=== PATIENT | male | born 1945 | race Caucasian/White ===

== ENCOUNTER 2016-08-01 19:55 | Emergency (ER) | payer MEDICARE ==
--- NOTE | 2016-08-01 21:05 | DIAGNOSTIC IMAGING REPORT ---
PROCEDURE: XR CHEST 1 VIEW INDICATION: CHEST PAIN TECHNIQUE: Portable AP view 08:37 p.m. COMPARISON: None. FINDINGS: Lungs are clear. Borderline cardiomegaly. Mediastinum and prior vessels are normal. Mildly tortuous aorta. Thorax is normal. IMPRESSION: 1. Borderline cardiomegaly.
--- NOTE | 2016-08-01 23:58 | ED NURSING NOTES ---
Clinical Report - Nurses [facility] [address] [place] [address] 08/01/2016 19:54 Patient: GHULAM AQUINO TRIAGE Triage time 20:07. Acuity: LEVEL 2. Chief Complaint: CHEST DISCOMFORT and (1.5 HR ago got a "funny feeling in the middle of the chest. I had a knot in the middle of my chest, and now it's gone."). Alert. No acute distress. SEPSIS SCREEN: Sepsis Screen: negative. Negative (no infection suspected/documented). --20:32 Lorraine Izaguirre R.N. 20:08/01/16. BP: 148/76. HR: 89. RR: 18. O2 saturation: 95%. Temp: 98.7 F (oral). Pain level now: 0/10. --20:32 Lorraine Izaguirre R.N. 20:08/01/16. BP: 148/76. HR: 89. RR: 18. O2 saturation: 95%. Temp: 98.7 F (oral). Pain level now: 0/10. --20:32 Lorraine Izaguirre R.N. Weight: 23.5 kg stated. Height/Length: 69 inches Per Patient. BMI: 7.7. --20:30 Lorraine Izaguirre R.N. Medications Furosemide Oral 40 mg, daily. --20:23 Lorraine Izaguirre R.N. Digoxin Oral 0.25 mg, daily. --20:24 Lorraine Iazguirre R.N. MetFORMIN HCl Oral 750mg hs . --20:24 Lorraine Izaguirre R.N. Insulin Glargine Subcutaneous 22 units, every AM. --20:25 Lorraine Izaguirre R.N. Warfarin Sodium Oral 7.5 mg, daily. --20:26 Lorraine Izaguirre R.N. Metoprolol Tartrate Oral 100 mg, bid. --20:26 Lorraine Izaguirre R.N. Lisinopril Oral 10 mg, daily. --20:27 Lorraine Izaguirre R.N. Klor-Con M10 Oral 2 tabs day. --20:27 Lorraine Izaguirre R.N. HydrALAZINE HCl Oral (Tablet 25 mg) 1 tablet, day. --20:29 Lorraine Izaguirre R.N. Atorvastatin Calcium Oral 40 mg, at bedtime. --20:29 Lorraine Izaguirre R.N. VESIcare Oral (Tablet 5 mg) 1 tablet, day. --20:29 Lorraine Izaguirre R.N. Medication/allergy information source: the patient. --20:32 Lorraine Izaguirre R.N. Allergies Keflex. --20:30 Lorraine Izaguirre R.N. History Arrived by EMS. Historian: patient. 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 This started just prior to arrival. He has had difficulty breathing and nausea. No sweating episodes or vomiting. 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 See EMS report. BP: 148 / 76 lying. HR: 88. RR: 18. O2 saturation: 96 % room air. Upon arrival patient awake. No medications given. PAST MEDICAL HX: Immunizations: status is unknown. SOCIAL HX: Never smoker. Alcohol use; consumes two liquor. FALL RISK ASSESSMENT: Fall risk assessment completed. No fall risk identified. NUTRITIONAL RISK ASSESSMENT: The nutritional risk assessment revealed no deficiencies. FUNCTIONAL ASSESSMENT: Functional assessment: no impairments noted. LEARNING NEEDS ASSESSMENT: The learning needs assessment revealed no barriers. SKIN INTEGRITY ASSESSMENT: Skin integrity risk assessment completed. No skin integrity risk identified. --20:32 Lorraine Izaguirre R.N. PROBLEMS: Sleep Apnea. Osteoarthritis of Hip. DVT - Deep Venous Thrombosis. Back Pain. Pulm embolism . Perifpheral insufficiency . Hyperlipidemia. Cardiomyopathy associated with another disorder. Qbesity. A-fib. UTI - Urinary Tract Infection. Alcohol Intoxication. Diabetes Mellitus. Hypertension. Heart Disease. --20:17 Lorraine Izaguirre R.N. ADDITIONAL SURGERIES: Ankle lt . Femur bilat . Urostomy. --20:17 Lorraine Izaguirre R.N. Knee Surgery. --20:18 Lorraine Izaguirre R.N. Interventions ID band on patient. To room. --20:32 Lorraine Izaguirre R.N. 20:04 08/01/2016 Site #1 started prior to arrival by EMS via IV in the right antecubital space with an 18g angiocath, with aseptic technique and good blood return; one attempt. Saline lock flushed with 10 mL saline. --20:19 Lorraine Izaguirre R.N. PHYSICAL ASSESSMENT To room via stretcher. Patient gowned. GENERAL / NEURO / PSYCH: Alert. Oriented X 4. Appears in no acute distress. Appears anxious. HEENT: Mucous membranes are pink. RESPIRATORY: Respirations not labored. CVS: Cardiac rhythm: atrial fibrillation. Pulses within normal limits. Capillary refill less than 2 seconds. GI / : Abdomen nontender. EXTREMITIES: 3+ edema of the right lower extremity; 2+ edema of the left lower extremity. SKIN: Skin is warm and dry. Normal skin turgor. --20:33 Lorraine Izaguirre R.N. NURSING PROGRESS NOTES monitor worker, pulse oximeter and NIBP monitor placed on patient; monitor worker- Lead II; monitor alarms on. Patient gowned. Head of bed elevated. Two patient identifiers checked. Call light placed in reach. Side rails up x 2. Patient placed in chair. Brakes of chair on. Patient ready for evaluation. --20:35 Lorraine Izaguirre R.N. EKG time: (2015). EKG was ordered, performed by a tech and shown to the ED physician. --20:37 Boyd Fischer ER Tech1 21:19 08/01/16. BP: 150/80. HR: 95. RR: 18. O2 saturation: 93%. --21:20 Sarah Wilson Critical value relayed to ED by Chandra. Critical value received by lorraine. INR: 9.6. Critical value read back. Verified lab result and patient ID. ED physician notifed of critical value. --21:28 Lorraine Izaguirre R.N. 22:34 08/01/16. BP: 135/97. HR: 97. RR: 14. O2 saturation: 98%. Pain level now: 5/10. --22:43 Monica Pittman R.N. The patient is resting quietly. RESPIRATORY: No respiratory distress. SKIN: Skin is warm and dry. --22:43 Monica Pittman R.N. 23:18 08/01/2016 Zofran (Ondansetron HCl) IVP 4 mg given over 2 minute(s) via site #1. Allergies verified and confirmed 5 rights. IV patency established. IV site checked: no pain, redness, or swelling. IV flushed thoroughly pre- and post-medication administration. IVP given by RN. --23:18 Monica Pittman R.N. 23:56 08/01/2016 PHENERGAN (Promethazine HCl) IVP 25 mg given diluted in NS 100mL over 10 minute(s) via site #1. Allergies verified and confirmed 5 rights. IV patency established. IV site checked: no pain, redness, or swelling. IV flushed thoroughly pre- and post-medication administration. IVP given by RN. --00:01 Sarah Wilson 00:30 08/02/2016 IV Saline Lock Drip IV Discontinued: bag #1 completed. Total amount infused: 1000 mL. IV patency established. IV site checked: no pain, redness, or swelling. IV flushed thoroughly. --00:43 Diana Liu R.N. DISPOSITION / DISCHARGE Condition at departure: improved and stable. No learning barriers present. Discharge instructions provided and reviewed with the patient. Reviewed medication(s) side effects, precautions, dosing and course information. Prescription(s) given to the patient. Activity restrictions (rest) reviewed. Patient and binding nicker verbalized understanding. Written instructions provided in Icelandic. The patient was discharged home and accompanied by binding nicker. He left the Emergency Department ambulatory and via private vehicle. Manager Instrumentation driving. --00:45 Diana Liu R.N. 00:32 08/02/16. BP: 146/85 taken on the left arm, while lying. HR: 41 (regular and bradycardic). RR: 18 (regular and unlabored). O2 saturation: 95% on room air. Temp: deferred. Pain level now: 0/10. --00:45 Diana Liu R.N. Departure time: 00:32. --00:45 Diana Liu R.N. 00:30 08/02/2016 Site #1 removed upon discharge. Catheter intact. Manual pressure and bandage applied. --00:45 Diana Liu R.N. Locked/Released at 08/02/2016 0:46 by Diana Liu R.N.
--- NOTE | 2016-08-01 23:58 | ED NURSING NOTES ---
Clinical Report - Nurses [facility] [address] [place] [address] 08/01/2016 19:54 Patient: GHULAM AQUINO TRIAGE Triage time 20:07. Acuity: LEVEL 2. Chief Complaint: CHEST DISCOMFORT and (1.5 HR ago got a "funny feeling in the middle of the chest. I had a knot in the middle of my chest, and now it's gone."). Alert. No acute distress. SEPSIS SCREEN: Sepsis Screen: negative. Negative (no infection suspected/documented). --20:32 Lorraine Izaguirre R.N. 20:08/01/16. BP: 148/76. HR: 89. RR: 18. O2 saturation: 95%. Temp: 98.7 F (oral). Pain level now: 0/10. --20:32 Lorraine Izaguirre R.N. 20:08/01/16. BP: 148/76. HR: 89. RR: 18. O2 saturation: 95%. Temp: 98.7 F (oral). Pain level now: 0/10. --20:32 Lorraine Izaguirre R.N. Weight: 23.5 kg stated. Height/Length: 69 inches Per Patient. BMI: 7.7. --20:30 Lorraine Izaguirre R.N. Medications Furosemide Oral 40 mg, daily. --20:23 Lorraine Izaguirre R.N. Digoxin Oral 0.25 mg, daily. --20:24 Lorraine Izaguirre R.N. MetFORMIN HCl Oral 750mg hs . --20:24 Lorraine Izaguirre R.N. Insulin Glargine Subcutaneous 22 units, every AM. --20:25 Lorraine Izaguirre R.N. Warfarin Sodium Oral 7.5 mg, daily. --20:26 Lorraine Izaguirre R.N. Metoprolol Tartrate Oral 100 mg, bid. --20:26 Lorraine Izaguirre R.N. Lisinopril Oral 10 mg, daily. --20:27 Lorraine Izaguirre R.N. Klor-Con M10 Oral 2 tabs day. --20:27 Lorraine Izaguirre R.N. HydrALAZINE HCl Oral (Tablet 25 mg) 1 tablet, day. --20:29 Lorraine Izaguirre R.N. Atorvastatin Calcium Oral 40 mg, at bedtime. --20:29 Lorraine Izaguirre R.N. VESIcare Oral (Tablet 5 mg) 1 tablet, day. --20:29 Lorraine Izaguirre R.N. Medication/allergy information source: the patient. --20:32 Lorraine Izaguirre R.N. Allergies Keflex. --20:30 Lorraine Izaguirre R.N. History Arrived by EMS. Historian: patient. 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 This started just prior to arrival. He has had difficulty breathing and nausea. No sweating episodes or vomiting. 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 See EMS report. BP: 148 / 76 lying. HR: 88. RR: 18. O2 saturation: 96 % room air. Upon arrival patient awake. No medications given. PAST MEDICAL HX: Immunizations: status is unknown. SOCIAL HX: Never smoker. Alcohol use; consumes two liquor. FALL RISK ASSESSMENT: Fall risk assessment completed. No fall risk identified. NUTRITIONAL RISK ASSESSMENT: The nutritional risk assessment revealed no deficiencies. FUNCTIONAL ASSESSMENT: Functional assessment: no impairments noted. LEARNING NEEDS ASSESSMENT: The learning needs assessment revealed no barriers. SKIN INTEGRITY ASSESSMENT: Skin integrity risk assessment completed. No skin integrity risk identified. --20:32 Lorraine Izaguirre R.N. PROBLEMS: Sleep Apnea. Osteoarthritis of Hip. DVT - Deep Venous Thrombosis. Back Pain. Pulm embolism . Perifpheral insufficiency . Hyperlipidemia. Cardiomyopathy associated with another disorder. Qbesity. A-fib. UTI - Urinary Tract Infection. Alcohol Intoxication. Diabetes Mellitus. Hypertension. Heart Disease. --20:17 Lorraine Izaguirre R.N. ADDITIONAL SURGERIES: Ankle lt . Femur bilat . Urostomy. --20:17 Lorraine Izaguirre R.N. Knee Surgery. --20:18 Lorraine Izaguirre R.N. Interventions ID band on patient. To room. --20:32 Lorraine Izaguirre R.N. 20:04 08/01/2016 Site #1 started prior to arrival by EMS via IV in the right antecubital space with an 18g angiocath, with aseptic technique and good blood return; one attempt. Saline lock flushed with 10 mL saline. --20:19 Lorraine Izaguirre R.N. PHYSICAL ASSESSMENT To room via stretcher. Patient gowned. GENERAL / NEURO / PSYCH: Alert. Oriented X 4. Appears in no acute distress. Appears anxious. HEENT: Mucous membranes are pink. RESPIRATORY: Respirations not labored. CVS: Cardiac rhythm: atrial fibrillation. Pulses within normal limits. Capillary refill less than 2 seconds. GI / : Abdomen nontender. EXTREMITIES: 3+ edema of the right lower extremity; 2+ edema of the left lower extremity. SKIN: Skin is warm and dry. Normal skin turgor. --20:33 Lorraine Izaguirre R.N. NURSING PROGRESS NOTES youth nutritional monitor, pulse oximeter and NIBP monitor placed on patient; night monitor- Lead II; monitor alarms on. Patient gowned. Head of bed elevated. Two patient identifiers checked. Call light placed in reach. Side rails up x 2. Patient placed in chair. Brakes of chair on. Patient ready for evaluation. --20:35 Lorraine Izaguirre R.N. EKG time: (2015). EKG was ordered, performed by a tech and shown to the ED physician. --20:37 Boyd Fischer ER Tech1 21:19 08/01/16. BP: 150/80. HR: 95. RR: 18. O2 saturation: 93%. --21:20 Sarah Wilson Critical value relayed to ED by Chandra. Critical value received by lorraine. INR: 9.6. Critical value read back. Verified lab result and patient ID. ED physician notifed of critical value. --21:28 Lorraine Izaguirre R.N. 22:34 08/01/16. BP: 135/97. HR: 97. RR: 14. O2 saturation: 98%. Pain level now: 5/10. --22:43 Monica Pittman R.N. The patient is resting quietly. RESPIRATORY: No respiratory distress. SKIN: Skin is warm and dry. --22:43 Monica Pittman R.N. 23:18 08/01/2016 Zofran (Ondansetron HCl) IVP 4 mg given over 2 minute(s) via site #1. Allergies verified and confirmed 5 rights. IV patency established. IV site checked: no pain, redness, or swelling. IV flushed thoroughly pre- and post-medication administration. IVP given by RN. --23:18 Monica Pittman R.N. 23:56 08/01/2016 PHENERGAN (Promethazine HCl) IVP 25 mg given diluted in NS 100mL over 10 minute(s) via site #1. Allergies verified and confirmed 5 rights. IV patency established. IV site checked: no pain, redness, or swelling. IV flushed thoroughly pre- and post-medication administration. IVP given by RN. --00:01 Sarah Wilson 00:30 08/02/2016 IV Saline Lock Drip IV Discontinued: bag #1 completed. Total amount infused: 1000 mL. IV patency established. IV site checked: no pain, redness, or swelling. IV flushed thoroughly. --00:43 Diana Liu R.N. DISPOSITION / DISCHARGE Condition at departure: improved and stable. No learning barriers present. Discharge instructions provided and reviewed with the patient. Reviewed medication(s) side effects, precautions, dosing and course information. Prescription(s) given to the patient. Activity restrictions (rest) reviewed. Patient and concert pianist verbalized understanding. Written instructions provided in Syriac. The patient was discharged home and accompanied by concert pianist. He left the Emergency Department ambulatory and via private vehicle. Paste Up Artist Apprentice driving. --00:45 Diana Liu R.N. 00:32 08/02/16. BP: 146/85 taken on the left arm, while lying. HR: 41 (regular and bradycardic). RR: 18 (regular and unlabored). O2 saturation: 95% on room air. Temp: deferred. Pain level now: 0/10. --00:45 Diana Liu R.N. Departure time: 00:32. --00:45 Diana Liu R.N. 00:30 08/02/2016 Site #1 removed upon discharge. Catheter intact. Manual pressure and bandage applied. --00:45 Diana Liu R.N. Locked/Released at 08/02/2016 0:46 by Diana Liu R.N.
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
--- NOTE | 2016-08-01 23:58 | ED ORDER SUMMARY ---
..... Patient: GHULAM AQUINO OrderSheet [facility] VisitID: [id number] [place] [address] 70y, M Registration Date/Time: 08/01/2016 ORDER SHEET Weight: 23.5 kg (stated) Allergies: Keflex GENERAL ORDERS: Chest 1V Urgent (20:08/01/2016 Jose Cadena) (Ack 20:31 Aníbal) (20:51 Lindy) Delivery Nurse (Continuous) (CP) (20:08/01/2016 oJse Cadena) (20:32 Aníbal) CBC w Diff Urgent (20:08/01/2016 Jose Cadena) (Ack 20:31 Aníbal) (22:26 KKnebel R.N.) CMP Urgent (20:08/01/2016 Jose Cadena) (Ack 20:31 Aníbal) (22:26 KKnebel R.N.) UA-Culture if indicated Urgent (20:08/01/2016 Jose Cadena) (Ack 20:31 Aníbal) (22:26 KKnebel R.N.) PT with INR Urgent (20:08/01/2016 Jose Cadena) (Ack 20:31 Aníbal) (22:26 KKnebel R.N.) D-Dimer Urgent (20:08/01/2016 Jose Cadena) (Ack 20:31 Aníbal) (22:26 KKnebel R.N.) Troponin-I Urgent (20:08/01/2016 Jose Cadena) (Ack 20:31 Aníbal) (22:26 KKnebel R.N.) CPK Urgent (20:08/01/2016 Jose Cadena) (Ack 20:31 Aníbal) (22:26 KKnebel R.N.) TSH Urgent (20:08/01/2016 Jose Cadena) (Ack 20:31 Aníbal) (22:26 KKnebel R.N.) Digoxin Level Urgent (20:08/01/2016 Jose Cadena) (Ack 20:31 Aníbal) (22:26 Ricky R.N.) Pulse oximeter (20:26 08/01/2016 Jose Cadena) (20:32 RKaruga) EKG - ER Stat (20:26 08/01/2016 Jose Cadena) (20:26 PWeiler ER Tech1) Ethyl Alcohol Urgent (22:36 08/01/2016 Naomie Cadena) (Ack 22:44 Aníbal) (23:00 Ricky R.N.) MEDICATION ORDERS: Phenergan IV 25 mg (HIGH ALERT MEDICATION, NOW) (23:53 08/01/2016 Naomie Cadena) (Ack 23:54 HSoule) (0:01 HSoule) IV FLUIDS: IV Saline Lock (20:26 08/01/2016 Jose Cadena) (20:36 Belen R.N.) Zofran IV 4 mg (NOW) (23:10 08/01/2016 Naomie Cadena) (Ack 23:12 Aubrey Nolasco) (23:18 Ricky R.NKalpesh) ORDER SHEET NOTES: [Electronically signed by Amilcar Dawkins Dr. (00:09 08/02/2016)] [Electronically signed by Diana Liu R.N. (00:46 08/02/2016)] [Electronically locked/signed by Diana Liu R.N. (00:46 08/02/2016)]
--- NOTE | 2016-08-01 23:58 | ED ORDER SUMMARY ---
..... Patient: GHULAM AQUINO OrderSheet [facility] VisitID: [id number] [place] [address] 70y, M Registration Date/Time: 08/01/2016 ORDER SHEET Weight: 23.5 kg (stated) Allergies: Keflex GENERAL ORDERS: Chest 1V Urgent (20:08/01/2016 Jose Cadena) (Ack 20:31 Aníbal) (20:51 Lindy) Air Tube Releaser (Continuous) (CP) (20:08/01/2016 Jose Cadena) (20:32 Aníbal) CBC w Diff Urgent (20:08/01/2016 Jose Cadena) (Ack 20:31 Aníbal) (22:26 KKnebel R.N.) CMP Urgent (20:08/01/2016 Jose Cadena) (Ack 20:31 Aníbal) (22:26 KKnebel R.N.) UA-Culture if indicated Urgent (20:08/01/2016 Jose Cadena) (Ack 20:31 Aníbal) (22:26 KKnebel R.N.) PT with INR Urgent (20:08/01/2016 Jose Cadena) (Ack 20:31 Aníbal) (22:26 KKnebel R.N.) D-Dimer Urgent (20:08/01/2016 Jose Cadena) (Ack 20:31 Aníbal) (22:26 KKnebel R.N.) Troponin-I Urgent (20:08/01/2016 Jose Cadena) (Ack 20:31 Aníbal) (22:26 KKnebel R.N.) CPK Urgent (20:08/01/2016 Jose Cadena) (Ack 20:31 Aníbal) (22:26 KKnebel R.N.) TSH Urgent (20:08/01/2016 Jose Cadena) (Ack 20:31 Aníbal) (22:26 KKnebel R.N.) Digoxin Level Urgent (20:08/01/2016 Jose Cadena) (Ack 20:31 Aníbal) (22:26 Ricky R.N.) Pulse oximeter (20:26 08/01/2016 Jose Cadena) (20:32 RKaruga) EKG - ER Stat (20:26 08/01/2016 Jose Cadena) (20:26 PWeiler ER Tech1) Ethyl Alcohol Urgent (22:36 08/01/2016 Naomie Cadena) (Ack 22:44 Aníbal) (23:00 Ricky R.N.) MEDICATION ORDERS: Phenergan IV 25 mg (HIGH ALERT MEDICATION, NOW) (23:53 08/01/2016 Naomie Cadena) (Ack 23:54 HSoule) (0:01 HSoule) IV FLUIDS: IV Saline Lock (20:26 08/01/2016 Jose Cadena) (20:36 Belen R.N.) Zofran IV 4 mg (NOW) (23:10 08/01/2016 Naomie Cadena) (Ack 23:12 Aubrey Nolasco) (23:18 Ricky R.NKalpesh) ORDER SHEET NOTES: [Electronically signed by Amilcar Dawkins Dr. (00:09 08/02/2016)] [Electronically signed by Diana Liu R.N. (00:46 08/02/2016)] [Electronically locked/signed by Diana Liu R.N. (00:46 08/02/2016)]
--- NOTE | 2016-08-02 00:47 | ED MED RECONCILIATION SUMMARY ---
Patient: GHULAM AQUINO Medication Reconciliation Report [facility] VisitID: [id number] [address] [place] [address] 70y, M Registration Date/Time: 08/01/2016 Weight: 23.5 kg Height/Length: 69 in. BMI: 7.7 ALLERGIES: Keflex The patient's Home Medications are listed below: CHANGE THE FOLLOWING MEDICATIONS TO: Warfarin Sodium Oral : 7.5 mg daily, Hold your Warfarin for Wednesday and Wednesday. Then start 2.5 mg every other day and 5 mg on other days. CONTINUE TAKING THE FOLLOWING MEDICATIONS: Atorvastatin Calcium Oral 40 mg, at bedtime Digoxin Oral 0.25 mg, daily Furosemide Oral 40 mg, daily HydrALAZINE HCl Oral (25 mg) 1 tablet, day Insulin Glargine Subcutaneous 22 units, every AM Klor-Con M10 Oral 2 tabs day Lisinopril Oral 10 mg, daily MetFORMIN HCl Oral 750mg hs Metoprolol Tartrate Oral 100 mg, bid VESIcare Oral (5 mg) 1 tablet, day The source(s) of the original Home Medication information: patient The following Medications were given to the patient in the Emergency Department: Zofran [IVP] IVP 4 mg, administered: 08/01/2016 11:18:00 PM PHENERGAN [IVP] IVP 25 mg diluted in NS 100 mL, administered: 08/01/2016 11:56:00 PM The following Medications were prescribed to the patient: Zantac 150 mg: take 1 orally every 12 hours. Dispense sixty (60). No refills. Substitution is permissible. -- Amilcar Dawkins Dr. Zofran ODT 4 mg: take 1 orally every 6 hours as needed for nausea and vomiting. Dispense ten (10). No refill. Substitution is permissible. -- Amilcar Dawkins Dr.
--- NOTE | 2016-08-02 00:47 | ED DISCHARGE INSTRUCTIONS ---
Patient: GHULAM AQUINO General Instructions [facility] VisitID: [id number] [place] [address] 70y, M Registration Date/Time: 08/01/2016 Acute alcoholic gastritis. No chronic gastritis or hemorrhagic gastritis. Oral anticoagulation therapy with high INR. INSTRUCTIONS Rest at home today and tomorrow. No alcohol. Your Current Medications: CHANGE THE FOLLOWING MEDICATIONS TO: Warfarin Sodium Oral : 7.5 mg daily, Hold your Warfarin for Wednesday and Wednesday. Then start 2.5 mg every other day and 5 mg on other days. CONTINUE TAKING THE FOLLOWING MEDICATIONS: Atorvastatin Calcium Oral : 40 mg at bedtime. Digoxin Oral : 0.25 mg daily. Furosemide Oral : 40 mg daily. HydrALAZINE HCl Oral : Tablet 25 mg, 1 tablet day. Insulin Glargine Subcutaneous : 22 units every AM. Klor-Con M10 Oral : 2 tabs day. Lisinopril Oral : 10 mg daily. MetFORMIN HCl Oral : 750mg hs. Metoprolol Tartrate Oral : 100 mg bid. VESIcare Oral : Tablet 5 mg, 1 tablet day. Prescription Medications: Zantac 150 mg: take 1 orally every 12 hours. Dispense sixty (60). No refills. Substitution is permissible. Zofran ODT 4 mg: take 1 orally every 6 hours as needed for nausea and vomiting. Dispense ten (10). No refill. Substitution is permissible. Follow-up: Follow up with your doctor in about three days. Call for an appointment. Blood pressure screening was not performed during this visit because the patient has an active diagnosis of hypertension. ADDITIONAL INFORMATION Gastritis (Adult) Gastritis is an irritation of the stomach lining. It can be acute (recent) or chronic (lasting a long time). Gastritis can be caused by overuse of alcohol or anti-inflammatory medications (such as aspirin, ibuprofen, or prednisone). H pyloriinfection can also cause chronic gastritis. Gastritis can cause a dull ache or burning pain in the upper abdomen. Other symptoms include nausea, vomiting, loss of appetite, and belching or bloating. Blood in the vomit or stools (red or black) is a sign of bleeding in the stomach. This requires immediate medical attention. Tests for H pyloriare used to screen for bacterial infection. If no infection is found, gastritis can be treated by stopping the cause and treating with antacids plus an acid heath medication. If H pylori infection is found, antibiotics will also be prescribed. Persons 55 years and older may undergo other tests before treatment is started. Two common tests are used to evaluate your symptoms. An upper GI series is an x-ray taken after you drink a chalky liquid called barium. This coats the stomach and allows the doctor to view any problems in the stomach on the x-ray. Another test is called endoscopy, during which a long thin tube called an endoscope is passed down your throat to the stomach. A camera at the end of the scope allows the doctor to view inside the stomach to check the cause of your symptoms. Home Care: Take the prescribed acid heath medication for the full course of treatment even if you begin to feel better sooner. This medication can take up to several days to fully control your symptoms. If you cant afford the prescribed medication, you can try [id number] acid blockers, such as Pepcid AC, Tagamet, Zantac, or Aciphex. If these do not relieve your symptoms, a stronger acid-heath can be tried, such as Prilosec OTC. If you have been prescribed an antibiotic to treat H pyloriinfection, finish the full course of medication. Do so even if you begin to feel better sooner. If you stop the medication too soon, the infection can return and be harder to treat. You can use antacids, such as Tums, Rolaids, Mylanta, or Maalox, for pain. This will be useful the first few days after starting acid blockers when the blockers havent started working yet. Follow the directions on the label. Liquid antacids may work better than tablets. Note that antacids can interfere with absorption of certain medications. Specifically, do not take Tagamet (cimetidine), Zantac (ranitidine), or Carafate (sucralfate) within 1 hour of taking an antacid. Talk with your pharmacist if you have any questions. Symptoms of gastritis can be worsened by certain foods. Limit or avoid fatty, fried, and spicy foods, as well as coffee, chocolate, mint, and foods with high acid content such as tomatoes and citrus fruit and juices (orange, grapefruit, lemon). Avoid alcohol, caffeine, and tobacco, which can delay healing. Avoid aspirin and anti-inflammatory medications such as ibuprofen (Advil, Motrin) and naproxen (Naprosyn, Aleve). Acetaminophen (Tylenol) is safe to use. Do not take more than the amount listed on the label. Follow Up with your doctor, or as advised by our staff. Further testing may be needed. If you do not improve over the next 4 days, contact your doctor. If you had an x-ray, CT scan, or ECG (electrocardiogram), it will be reviewed by a specialist. Youll be notified of any new findings that affect your care. Get Prompt Medical Attention if any of the following occur: Stomach pain gets worse or moves to the lower right abdomen (appendix area) Chest pain appears or gets worse, or spreads to the back, neck, shoulder, or arm Frequent vomiting (cant keep down liquids) Blood in the stool or vomit (red or black in color) Feeling weak or dizzy, fainting, or trouble breathing Fever of 100.4F (38C) or higher, or as directed by your healthcare provider Ranitidine Hydrochloride Oral tablet What is this medicine? RANITIDINE (ra RHEA tubbs) is a type of antihistamine that blocks the release of stomach acid. It is used to treat stomach or intestinal ulcers. It can relieve ulcer pain and discomfort, and the heartburn from acid reflux. How should I use this medicine? Take this medicine by mouth with a glass of water. Follow the directions on the prescription label. If you only take this medicine once a day, take it at bedtime. Take your medicine at regular intervals. Do not take your medicine more often than directed. Do not stop taking except on your doctor's advice. Talk to your pump servicer regarding the use of this medicine in children. Special care may be needed. What side effects may I notice from receiving this medicine? Side effects that you should report to your doctor or health critical care physician assistant as soon as possible: agitation, nervousness, depression, hallucinations allergic reactions like skin rash, itching or hives, swelling of the face, lips, or tongue breast enlargement in both males and females breathing problems redness, blistering, peeling or loosening of the skin, including inside the mouth unusual bleeding or bruising unusually weak or tired vomiting yellowing of the skin or eyes Side effects that usually do not require medical attention (report to your doctor or health critical care physician assistant if they continue or are bothersome): constipation or diarrhea dizziness headache nausea What may interact with this medicine? atazanavir delavirdine gefitinib glipizide ketoconazole midazolam procainamide propantheline triazolam warfarin What if I miss a dose? If you miss a dose, take it as soon as you can. If it is almost time for your next dose, take only that dose. Do not take double or extra doses. Where should I keep my medicine? Keep out of the reach of children. Store at room temperature between 15 and 30 degrees C (59 and 86 degrees F). Protect from light and moisture. Keep container tightly closed. Throw away any unused medicine after the expiration date. What should I tell my health care provider before I take this medicine? They need to know if you have any of these conditions: kidney disease liver disease porphyria an unusual or allergic reaction to ranitidine, other medicines, foods, dyes, or preservatives or trying to get breast-feeding What should I watch for while using this medicine? Tell your doctor or health critical care physician assistant if your condition does not start to get better or gets worse. You may need to take this medicine for several days as prescribed before your symptoms get better. Finish the full course of tablets prescribed, even if you feel better. Do not smoke cigarettes or drink alcohol. These increase irritation in your stomach and can lengthen the time it will take for ulcers to heal. Cigarettes and alcohol can also make acid reflux or heartburn worse. If you get black, tarry stools or vomit up what looks like coffee grounds, call your doctor or health critical care physician assistant at once. You may have a bleeding ulcer. Ondansetron Oral disintegrating tablet What is this medicine? ONDANSETRON (on KAYLIE se joana) is used to treat nausea and vomiting caused by chemotherapy. It is also used to prevent or treat nausea and vomiting after surgery. How should I use this medicine? These tablets are made to dissolve in the mouth. Do not try to push the tablet through the foil backing. With dry hands, peel away the foil backing and gently remove the tablet. Place the tablet in the mouth and allow it to dissolve, then swallow. While you may take these tablets with water, it is not necessary to do so. Talk to your pump servicer regarding the use of this medicine in children. Special care may be needed. What side effects may I notice from receiving this medicine? Side effects that you should report to your doctor or health critical care physician assistant as soon as possible: allergic reactions like skin rash, itching or hives, swelling of the face, lips, or tongue breathing problems dizziness fast or irregular heartbeat feeling faint or lightheaded, falls fever and chills swelling of the hands and feet tightness in the chest Side effects that usually do not require medical attention (report to your doctor or health critical care physician assistant if they continue or are bothersome): constipation or diarrhea headache What may interact with this medicine? Do not take this medicine with any of the following medications: -apomorphine -cisapride -dofetilide -dronedarone -pimozide -thioridazine -ziprasidone This medicine may also interact with the following medications: -carbamazepine -phenytoin -rifampicin -tramadol -other medicines that prolong the QT interval (cause an abnormal heart rhythm) What if I miss a dose? If you miss a dose, take it as soon as you can. If it is almost time for your next dose, take only that dose. Do not take double or extra doses. Where should I keep my medicine? Keep out of the reach of children. Store between 2 and 30 degrees C (36 and 86 degrees F). Throw away any unused medicine after the expiration date. What should I tell my health care provider before I take this medicine? They need to know if you have any of these conditions: heart disease history of irregular heartbeat liver disease low levels of magnesium or potassium in the blood an unusual or allergic reaction to ondansetron, granisetron, other medicines, foods, dyes, or preservatives or trying to get breast-feeding What should I watch for while using this medicine? Check with your doctor or health critical care physician assistant as soon as you can if you have any sign of an allergic reaction. You have been given the following additional information: Gastritis (Adult) Ranitidine Hydrochloride Oral tablet Ondansetron Oral disintegrating tablet Rest at home today and tomorrow. (Electronically signed by Amilcar Dawkins Dr. 08/02/2016 0:09)
--- NOTE | 2016-08-02 00:47 | ED DISCHARGE INSTRUCTIONS ---
Patient: GHULAM AQUINO General Instructions [facility] VisitID: [id number] [place] [address] 70y, M Registration Date/Time: 08/01/2016 Acute alcoholic gastritis. No chronic gastritis or hemorrhagic gastritis. Oral anticoagulation therapy with high INR. INSTRUCTIONS Rest at home today and tomorrow. No alcohol. Your Current Medications: CHANGE THE FOLLOWING MEDICATIONS TO: Warfarin Sodium Oral : 7.5 mg daily, Hold your Warfarin for Wednesday and Wednesday. Then start 2.5 mg every other day and 5 mg on other days. CONTINUE TAKING THE FOLLOWING MEDICATIONS: Atorvastatin Calcium Oral : 40 mg at bedtime. Digoxin Oral : 0.25 mg daily. Furosemide Oral : 40 mg daily. HydrALAZINE HCl Oral : Tablet 25 mg, 1 tablet day. Insulin Glargine Subcutaneous : 22 units every AM. Klor-Con M10 Oral : 2 tabs day. Lisinopril Oral : 10 mg daily. MetFORMIN HCl Oral : 750mg hs. Metoprolol Tartrate Oral : 100 mg bid. VESIcare Oral : Tablet 5 mg, 1 tablet day. Prescription Medications: Zantac 150 mg: take 1 orally every 12 hours. Dispense sixty (60). No refills. Substitution is permissible. Zofran ODT 4 mg: take 1 orally every 6 hours as needed for nausea and vomiting. Dispense ten (10). No refill. Substitution is permissible. Follow-up: Follow up with your doctor in about three days. Call for an appointment. Blood pressure screening was not performed during this visit because the patient has an active diagnosis of hypertension. ADDITIONAL INFORMATION Gastritis (Adult) Gastritis is an irritation of the stomach lining. It can be acute (recent) or chronic (lasting a long time). Gastritis can be caused by overuse of alcohol or anti-inflammatory medications (such as aspirin, ibuprofen, or prednisone). H pyloriinfection can also cause chronic gastritis. Gastritis can cause a dull ache or burning pain in the upper abdomen. Other symptoms include nausea, vomiting, loss of appetite, and belching or bloating. Blood in the vomit or stools (red or black) is a sign of bleeding in the stomach. This requires immediate medical attention. Tests for H pyloriare used to screen for bacterial infection. If no infection is found, gastritis can be treated by stopping the cause and treating with antacids plus an acid heath medication. If H pylori infection is found, antibiotics will also be prescribed. Persons 55 years and older may undergo other tests before treatment is started. Two common tests are used to evaluate your symptoms. An upper GI series is an x-ray taken after you drink a chalky liquid called barium. This coats the stomach and allows the doctor to view any problems in the stomach on the x-ray. Another test is called endoscopy, during which a long thin tube called an endoscope is passed down your throat to the stomach. A camera at the end of the scope allows the doctor to view inside the stomach to check the cause of your symptoms. Home Care: Take the prescribed acid heath medication for the full course of treatment even if you begin to feel better sooner. This medication can take up to several days to fully control your symptoms. If you cant afford the prescribed medication, you can try [id number] acid blockers, such as Pepcid AC, Tagamet, Zantac, or Aciphex. If these do not relieve your symptoms, a stronger acid-heath can be tried, such as Prilosec OTC. If you have been prescribed an antibiotic to treat H pyloriinfection, finish the full course of medication. Do so even if you begin to feel better sooner. If you stop the medication too soon, the infection can return and be harder to treat. You can use antacids, such as Tums, Rolaids, Mylanta, or Maalox, for pain. This will be useful the first few days after starting acid blockers when the blockers havent started working yet. Follow the directions on the label. Liquid antacids may work better than tablets. Note that antacids can interfere with absorption of certain medications. Specifically, do not take Tagamet (cimetidine), Zantac (ranitidine), or Carafate (sucralfate) within 1 hour of taking an antacid. Talk with your pharmacist if you have any questions. Symptoms of gastritis can be worsened by certain foods. Limit or avoid fatty, fried, and spicy foods, as well as coffee, chocolate, mint, and foods with high acid content such as tomatoes and citrus fruit and juices (orange, grapefruit, lemon). Avoid alcohol, caffeine, and tobacco, which can delay healing. Avoid aspirin and anti-inflammatory medications such as ibuprofen (Advil, Motrin) and naproxen (Naprosyn, Aleve). Acetaminophen (Tylenol) is safe to use. Do not take more than the amount listed on the label. Follow Up with your doctor, or as advised by our staff. Further testing may be needed. If you do not improve over the next 4 days, contact your doctor. If you had an x-ray, CT scan, or ECG (electrocardiogram), it will be reviewed by a specialist. Youll be notified of any new findings that affect your care. Get Prompt Medical Attention if any of the following occur: Stomach pain gets worse or moves to the lower right abdomen (appendix area) Chest pain appears or gets worse, or spreads to the back, neck, shoulder, or arm Frequent vomiting (cant keep down liquids) Blood in the stool or vomit (red or black in color) Feeling weak or dizzy, fainting, or trouble breathing Fever of 100.4F (38C) or higher, or as directed by your healthcare provider Ranitidine Hydrochloride Oral tablet What is this medicine? RANITIDINE (ra RHEA tubbs) is a type of antihistamine that blocks the release of stomach acid. It is used to treat stomach or intestinal ulcers. It can relieve ulcer pain and discomfort, and the heartburn from acid reflux. How should I use this medicine? Take this medicine by mouth with a glass of water. Follow the directions on the prescription label. If you only take this medicine once a day, take it at bedtime. Take your medicine at regular intervals. Do not take your medicine more often than directed. Do not stop taking except on your doctor's advice. Talk to your woodworking shop hand regarding the use of this medicine in children. Special care may be needed. What side effects may I notice from receiving this medicine? Side effects that you should report to your doctor or health elderly caregiver as soon as possible: agitation, nervousness, depression, hallucinations allergic reactions like skin rash, itching or hives, swelling of the face, lips, or tongue breast enlargement in both males and females breathing problems redness, blistering, peeling or loosening of the skin, including inside the mouth unusual bleeding or bruising unusually weak or tired vomiting yellowing of the skin or eyes Side effects that usually do not require medical attention (report to your doctor or health elderly caregiver if they continue or are bothersome): constipation or diarrhea dizziness headache nausea What may interact with this medicine? atazanavir delavirdine gefitinib glipizide ketoconazole midazolam procainamide propantheline triazolam warfarin What if I miss a dose? If you miss a dose, take it as soon as you can. If it is almost time for your next dose, take only that dose. Do not take double or extra doses. Where should I keep my medicine? Keep out of the reach of children. Store at room temperature between 15 and 30 degrees C (59 and 86 degrees F). Protect from light and moisture. Keep container tightly closed. Throw away any unused medicine after the expiration date. What should I tell my health care provider before I take this medicine? They need to know if you have any of these conditions: kidney disease liver disease porphyria an unusual or allergic reaction to ranitidine, other medicines, foods, dyes, or preservatives or trying to get breast-feeding What should I watch for while using this medicine? Tell your doctor or health elderly caregiver if your condition does not start to get better or gets worse. You may need to take this medicine for several days as prescribed before your symptoms get better. Finish the full course of tablets prescribed, even if you feel better. Do not smoke cigarettes or drink alcohol. These increase irritation in your stomach and can lengthen the time it will take for ulcers to heal. Cigarettes and alcohol can also make acid reflux or heartburn worse. If you get black, tarry stools or vomit up what looks like coffee grounds, call your doctor or health elderly caregiver at once. You may have a bleeding ulcer. Ondansetron Oral disintegrating tablet What is this medicine? ONDANSETRON (on KAYLIE se joana) is used to treat nausea and vomiting caused by chemotherapy. It is also used to prevent or treat nausea and vomiting after surgery. How should I use this medicine? These tablets are made to dissolve in the mouth. Do not try to push the tablet through the foil backing. With dry hands, peel away the foil backing and gently remove the tablet. Place the tablet in the mouth and allow it to dissolve, then swallow. While you may take these tablets with water, it is not necessary to do so. Talk to your woodworking shop hand regarding the use of this medicine in children. Special care may be needed. What side effects may I notice from receiving this medicine? Side effects that you should report to your doctor or health elderly caregiver as soon as possible: allergic reactions like skin rash, itching or hives, swelling of the face, lips, or tongue breathing problems dizziness fast or irregular heartbeat feeling faint or lightheaded, falls fever and chills swelling of the hands and feet tightness in the chest Side effects that usually do not require medical attention (report to your doctor or health elderly caregiver if they continue or are bothersome): constipation or diarrhea headache What may interact with this medicine? Do not take this medicine with any of the following medications: -apomorphine -cisapride -dofetilide -dronedarone -pimozide -thioridazine -ziprasidone This medicine may also interact with the following medications: -carbamazepine -phenytoin -rifampicin -tramadol -other medicines that prolong the QT interval (cause an abnormal heart rhythm) What if I miss a dose? If you miss a dose, take it as soon as you can. If it is almost time for your next dose, take only that dose. Do not take double or extra doses. Where should I keep my medicine? Keep out of the reach of children. Store between 2 and 30 degrees C (36 and 86 degrees F). Throw away any unused medicine after the expiration date. What should I tell my health care provider before I take this medicine? They need to know if you have any of these conditions: heart disease history of irregular heartbeat liver disease low levels of magnesium or potassium in the blood an unusual or allergic reaction to ondansetron, granisetron, other medicines, foods, dyes, or preservatives or trying to get breast-feeding What should I watch for while using this medicine? Check with your doctor or health elderly caregiver as soon as you can if you have any sign of an allergic reaction. You have been given the following additional information: Gastritis (Adult) Ranitidine Hydrochloride Oral tablet Ondansetron Oral disintegrating tablet Rest at home today and tomorrow. (Electronically signed by Amilcar Dawkins Dr. 08/02/2016 0:09)
--- NOTE | 2016-08-02 00:47 | ED MAR SUMMARY ---
..... Medication Administration Record [facility] [address] [place] [address] Patient: GHULAM AQUINO Visit ID: [id number] 70y, M Weight: 23.5 kg Height/Length: 69 in BMI: 7.7 ALLERGIES: Keflex Given 23:18 08/01/2016 Monica Pittman R.N. Medication Administered: ZOFRAN [IVP] (ONDANSETRON HCL), Dose: 4 mg IVP over 2 minute(s), Site: #1 right AC. Medication Ordered: Zofran IV 4 mg (NOW). Given 23:56 08/01/2016 Sarha Wilson, Medication Administered: PHENERGAN [IVP] (PROMETHAZINE HCL), Dose: 25 mg IVP over 10 minute(s), In: NS 100 mL, Site: #1 right AC. Medication Ordered: Phenergan IV 25 mg (HIGH ALERT MEDICATION, NOW).
--- NOTE | 2016-08-02 00:47 | ED MAR SUMMARY ---
..... Medication Administration Record [facility] [address] [place] [address] Patient: GHULAM AQUINO Visit ID: [id number] 70y, M Weight: 23.5 kg Height/Length: 69 in BMI: 7.7 ALLERGIES: Keflex Given 23:18 08/01/2016 Monica Pittman R.N. Medication Administered: ZOFRAN [IVP] (ONDANSETRON HCL), Dose: 4 mg IVP over 2 minute(s), Site: #1 right AC. Medication Ordered: Zofran IV 4 mg (NOW). Given 23:56 08/01/2016 Sarah Wilson, Medication Administered: PHENERGAN [IVP] (PROMETHAZINE HCL), Dose: 25 mg IVP over 10 minute(s), In: NS 100 mL, Site: #1 right AC. Medication Ordered: Phenergan IV 25 mg (HIGH ALERT MEDICATION, NOW).
--- NOTE | 2016-08-02 00:47 | ED MED RECONCILIATION SUMMARY ---
Patient: GHULAM AQUINO Medication Reconciliation Report VisitID: [id number] [address] [place] [address] 70y, M Registration Date/Time: 08/01/2016 Weight: 23.5 kg Height/Length: 69 in. BMI: 7.7 ALLERGIES: Keflex The patient's Home Medications are listed below: CHANGE THE FOLLOWING MEDICATIONS TO: Warfarin Sodium Oral : 7.5 mg daily, Hold your Warfarin for Wednesday and Wednesday. Then start 2.5 mg every other day and 5 mg on other days. CONTINUE TAKING THE FOLLOWING MEDICATIONS: Atorvastatin Calcium Oral 40 mg, at bedtime Digoxin Oral 0.25 mg, daily Furosemide Oral 40 mg, daily HydrALAZINE HCl Oral (25 mg) 1 tablet, day Insulin Glargine Subcutaneous 22 units, every AM Klor-Con M10 Oral 2 tabs day Lisinopril Oral 10 mg, daily MetFORMIN HCl Oral 750mg hs Metoprolol Tartrate Oral 100 mg, bid VESIcare Oral (5 mg) 1 tablet, day The source(s) of the original Home Medication information: patient The following Medications were given to the patient in the Emergency Department: Zofran [IVP] IVP 4 mg, administered: 08/01/2016 11:18:00 PM PHENERGAN [IVP] IVP 25 mg diluted in NS 100 mL, administered: 08/01/2016 11:56:00 PM The following Medications were prescribed to the patient: Zantac 150 mg: take 1 orally every 12 hours. Dispense sixty (60). No refills. Substitution is permissible. -- Amilcar Dawkins Dr. Zofran ODT 4 mg: take 1 orally every 6 hours as needed for nausea and vomiting. Dispense ten (10). No refill. Substitution is permissible. -- Amilcar Dawkins Dr.
== END 2016-08-02 00:32 | disposition home or self-care (01) ==
LOC: ED SRH 19:55
DX: K29.20 Alcoholic gastritis without bleeding (principal); R79.1 Abnormal coagulation profile; I10 Essential (primary) hypertension; E78.5 Hyperlipidemia, unspecified; E11.9 Type 2 diabetes mellitus without complications; I48.91 Unspecified atrial fibrillation; Z86.718 Personal history of other venous thrombosis and embolism; Z79.01 Long term (current) use of anticoagulants; Z79.4 Long term (current) use of insulin
CPT/HCPCS: 90100; 90616; 91556; 92010; 92610; 93020; 93140; 94060; 95059